=== PATIENT | female | born 1985 | race Native Hawaiian/Other Pacific Islander ===

== ENCOUNTER 2017-05-23 16:08 | Emergency (ER) | payer OTHER ==
[2017-05-23] MEDS: ACETAMINOPHEN 325 MG TAB PO (16:45)
[2017-05-23] MEDS: CLINDAMYCIN 150 MG CAP PO (16:45)
[2017-05-23] MEDS: dexameTHASONE 4 MG/ML 1ML VIAL (J1100) PO (16:45)
== END 2017-05-23 17:00 | disposition home or self-care (01) ==
LOC: M ED 16:08
DX: J02.9 Acute pharyngitis, unspecified (principal); Z88.0 Allergy status to penicillin
CPT/HCPCS: J1100

== ENCOUNTER 2017-06-08 13:03 | Emergency (ER) | payer OTHER ==
[2017-06-08] MEDS: IBUPROFEN 800 MG TAB PO (14:15)
[2017-06-08] MEDS: ACETAMINOPHEN 325 MG TAB PO (14:15)
== END 2017-06-08 14:31 | disposition home or self-care (01) ==
LOC: M ED 13:03
DX: J02.9 Acute pharyngitis, unspecified (principal); J45.909 Unspecified asthma, uncomplicated; Z88.0 Allergy status to penicillin; Z87.891 Personal history of nicotine dependence
CPT/HCPCS: 87880

== ENCOUNTER 2018-03-28 11:51 | Emergency (ER) | payer OTHER ==
[~2018-03-28] VITALS: Ht 147.3 cm; Wt 87.3 kg
[~2018-03-28 11:51] MED LIST: CLEO300C2 PO; PRENTAB55 PO; TYLE325T5 PO; ZITHTAB PO
[2018-03-28] MEDS ORDERED: ASPIRIN 81 MG CHEW TABLET PO ONE (12:15)
[2018-03-28] MEDS ORDERED: IPRATROPIUM 0.5MG/ALBUTEROL 2.5MG INH SOL UD 3ML (DUONEB)(J7620) NEB ONE (12:15)
[2018-03-28] MEDS ORDERED: methylPREDNISolone INJ 125 MG/2 ML VIAL (J2930) IV ONE (12:15)
[2018-03-28 12:34] LABS: BASO # 0.1 10^3/uL (0.0-0.2); BASO % 0.5 % (0.0-1.0); EOS # 0.3 10^3/uL (0.0-0.50); EOS % 2.2 % (0.0-3.0); HEMATOCRIT 42.7 % (36.0-47.0); LYMPH # 3.1 10^3/uL (1.5-4.5); LYMPH % 26.8 % (24.0-44.0); MEAN CORPUSCULAR HEMOGLOBIN 30.1 pg (27.0-33.0); MEAN CORPUSCULAR HGB CONC 35.1 g/dl (32.0-36.5); MEAN CORPUSCULAR VOLUME 85.7 fl (80.0-96.0); MONO # 1.1 10^3/uL (0.0-0.8); MONO % 9.1 % (0.0-5.0); NEUTROPHILS # 7.1 10^3/uL (1.8-7.7); NEUTROPHILS % 61.1 % (36.0-66.0); PLATELET COUNT, AUTOMATED 280 10^3/uL (150-450); RED BLOOD COUNT 4.98 10^6/uL (4.00-5.40); WHITE BLOOD COUNT 11.6 10^3/uL (4.0-10.0)
[2018-03-28 13:03] LABS: BLOOD UREA NITROGEN 14 MG/DL (7-18); CALCIUM LEVEL 8.9 MG/DL (8.5-10.1); CARBON DIOXIDE LEVEL 29 MEQ/L (21-32); CHLORIDE LEVEL 106 MEQ/L (98-107); CPK CREATINE PHOSPHOKINASE 114 U/L (26-192); CREATININE FOR GFR 0.69 MG/DL (0.55-1.30); GLOMERULAR FILTRATION RATE > 60.0 (>60); GLUCOSE, FASTING 104 MG/DL (70-100); MB/CK RELATIVE INDEX 3.42 (< OR =4); POTASSIUM SERUM 3.8 MEQ/L (3.5-5.1); SODIUM LEVEL 141 MEQ/L (136-145); TROPONIN I < 0.02 NG/ML (< 0.10)
[2018-03-28] MEDS ORDERED: PROAAER10 INH (13:16)
[2018-03-28] MEDS ORDERED: ZITHTAB PO (13:16)
[2018-03-28] MEDS ORDERED: MEDR4PAK PO (13:16)
[2018-03-28 13:52] VITALS: BP 112/73
--- NOTE | 2018-03-29 07:57 | ECGEPIP ---
Stationary ECG Study [facility] - ED Test Date: 2018-03-28 Pat Name: JASON GARCIA Department: Room: - Gender: F [employer] Director: : 1985 Requested By: Delroy Katz Order Number: [id number] Reading MD: Chanel Washington Measurements Intervals Eleanor Rate: 102 P: 73 SD: 163 QRS: 56 QRSD: 73 T: 21 QT: 331 QTc: 431 Interpretive Statements SINUS TACHYCARDIA NONSPECIFIC T-WAVE ABNORMALITY, CLINICAL CORRELATION ABNORMAL RHYTHM ECG NO PRIOR FOR COMPARISON Electronically Signed On 03-29-2018 7:56:53 EST by Chanel Washington
== END 2018-03-28 13:53 | disposition home or self-care (01) ==
LOC: M ED 11:51
DX: J45.909 Unspecified asthma, uncomplicated (principal)
CPT/HCPCS: 71046; 80048; 82550; 82553; 84484; 85025; 85379; 93005; 93041; 94640; 94760; 96374; 99284; J2930

== ENCOUNTER 2018-05-26 11:25 | Emergency (ER) | payer OTHER ==
[~2018-05-26] VITALS: Ht 147.3 cm; Wt 87.3 kg
[~2018-05-26 11:25] MED LIST changes: +MEDR4PAK PO; +PROAAER10 INH
[2018-05-26] MEDS ORDERED: IBUPROFEN 800 MG TAB PO ONE (13:15)
[2018-05-26] MEDS ORDERED: IBUP-1022 PO (14:10)
[2018-05-26 14:14] VITALS: BP 121/76
--- NOTE | 2018-05-26 14:38 | REP ---
FOCUSED LEFT BREAST SONOGRAPHY: HISTORY: Left breast tenderness, erythema. Rule out abscess. FINDINGS: The left breast is scanned from 1-o'clock position to 2-o'clock position in the area the patient's pain. Heterogeneous fibroglandular background echotexture is seen. A few prominent ducts are seen. No cyst, mass, or abscess is appreciated. IMPRESSION: A few prominent ducts are seen in this lactating patient. Breast parenchyma is heterogeneous. No abscess or mass seen. Electronically Signed by Fabián House MD 05/26/2018 10:24 P
== END 2018-05-26 14:20 | disposition home or self-care (01) ==
LOC: M ED 11:25
DX: N64.4 Mastodynia (principal); G47.30 Sleep apnea, unspecified; J45.909 Unspecified asthma, uncomplicated; Z88.0 Allergy status to penicillin